=== PATIENT | female | born 1955 | race Caucasian/White ===

== ENCOUNTER → 2017-01-04 | Outpatient (CLI) | payer MEDICAID ==
[2017-01-04 09:10] LABS: ALBUMIN 3.4 gm/dL (3.5-5.0); ANION GAP 8.5 (10.0-19.0); CALCIUM 8.9 mg/dL (8.5-10.5); POTASSIUM 3.5 mMol/L (3.7-5.1); TOTAL BILIRUBIN 0.6 mg/dL (0.0-1.5); TOTAL PROTEIN 7.3 g/dL (6.0-8.4)
== END ==
PROVIDERS: Internal Medicine Interventional Cardiology
DX: E78.2 Mixed hyperlipidemia (principal)